=== PATIENT | male | born 1985 | race Two or more races ===

== ENCOUNTER 2020-01-26 16:23 | Emergency (ER) | payer MEDICAID ==
[~2020-01-26] VITALS: Ht 180.3 cm; Wt 100.0 kg
[2020-01-26 16:27] VITALS: BP 137/85
[2020-01-26] MEDS ORDERED: KETOROLAC 60MG/2ML VIAL IM ONE (16:45)
== END 2020-01-26 17:02 | disposition home or self-care (01) ==
LOC: ER 16:23
DX: F11.10 Opioid abuse, uncomplicated (principal); F19.10 Other psychoactive substance abuse, uncomplicated
CPT/HCPCS: 99283